=== PATIENT | female | born 1955 | race Caucasian/White ===

== ENCOUNTER 2022-04-26 13:37 | Observation (INO) ==
[2022-04-26] MEDS ORDERED: *HR* HYDROcodone/Acet 5/325 mg TABLET PO PRN (16:35)
[2022-04-26] MEDS ORDERED: Ondansetron 4 MG/2 ML VIAL IVP PRN (16:35)
[2022-04-26] MEDS ORDERED: Naloxone 0.4 MG/ML INJ IVP PRN (16:35)
[2022-04-26] MEDS ORDERED: *HR* OxyCODONE Immed Rel 5 MG TABLET PO PRN (16:35)
[2022-04-26] MEDS ORDERED: Acetaminophen 325 MG TABLET PO PRN (16:35)
[2022-04-26] MEDS: Morphine Sulfate ER (12 HR) 15 MG TABLET.ER PO SCH ×2 (18:18→23:58)
[2022-04-26] MEDS: cefTRIAXone 1,000 MG in Water for inj. (sterile) 10 ML IVP SCH (18:18)
[2022-04-26] MEDS: levETIRAcetam 500 MG/5 ML UDC PO SCH ×2 (18:18→20:55)
[2022-04-27 06:37] LABS: Hematocrit 33.3 % (35.3-44.9); Hemoglobin 10.9 g/dL (11.5-15.4); Mean Corpuscular HGB Conc 32.7 g/dL (31.6-35.5); Mean Corpuscular Hemoglobin 28.9 pg (28.0-33.3); Mean Corpuscular Volume 88.3 fL (83.0-100.0); Mean Platelet Volume 9.3 fL (9.4-12.4); Platelet Count 362 K/mcL (140-400); Red Blood Count 3.77 M/mcL (3.82-4.97); Red Cell Distribution Width 13.2 % (11.5-14.5); White Blood Count 6.1 K/mcL (4.3-11.1)
[2022-04-27 06:57] LABS: BUN/Creatinine Ratio 17 (6-26); Blood Urea Nitrogen 12 mg/dL (8-23); Calcium 8.2 mg/dL (8.6-10.3); Carbon Dioxide 26 mEq/L (23-29); Chloride 98 mEq/L (98-107); Glucose 97 mg/dL (70-105); Magnesium 1.9 mg/dL (1.6-2.6); Osmolality,Calculated 272 (280-300); Potassium 3.5 mEq/L (3.5-5.1); Sodium 131 mEq/L (136-145); eGFR For African Americans > 60 (> 60); eGFR For Non-African Americans > 60 (> 60)
[2022-04-27] MEDS: Morphine Sulfate ER (12 HR) 15 MG TABLET.ER PO SCH ×2 (08:53→16:19)
[2022-04-27] MEDS: amLODIPine 5 MG TABLET PO SCH (08:54)
[2022-04-27] MEDS: dexAMETHasone 4 MG TABLET PO SCH (08:54)
[2022-04-27] MEDS: levETIRAcetam 500 MG/5 ML UDC PO SCH ×3 (08:55→21:26)
[2022-04-27] MEDS: (Osimertinib Mesylate [Tagrisso] 80 MG Tablet) PO SCH (09:01)
[2022-04-27] MEDS: cefTRIAXone 1,000 MG in Water for inj. (sterile) 10 ML IVP SCH (16:18)
[2022-04-28] MEDS: Morphine Sulfate ER (12 HR) 15 MG TABLET.ER PO SCH ×2 (00:41→08:05)
[2022-04-28 07:06] VITALS: RESP 16
[2022-04-28] MEDS: levETIRAcetam 500 MG/5 ML UDC PO SCH (08:05)
[2022-04-28] MEDS: dexAMETHasone 4 MG TABLET PO SCH (08:05)
[2022-04-28] MEDS: amLODIPine 5 MG TABLET PO SCH (08:06)
[2022-04-28] MEDS: (Osimertinib Mesylate [Tagrisso] 80 MG Tablet) PO SCH (08:06)
[2022-04-28 10:42] VITALS: BP 170/87; PULSE 90; TEMP 98.1; O2SAT 99
== END 2022-04-28 12:33 | disposition hospice, home (50) ==
LOC: INPPIK
PROVIDERS: ADMIT Family Medicine; ATTEND Family Medicine